=== PATIENT | female | born 1950 | race Caucasian/White ===

== ENCOUNTER 2023-08-24 12:35 | Emergency (ER) | payer MEDICARE, MEDICAID, SELFPAY ==
[2023-08-24] VITALS (11 sets, daily range): BP systolic 95–123; BP diastolic 58–66; PULSE 73–90; RESP 14–28; TEMP 36.1–36.6; O2SAT 95–97
--- NOTE | 2023-08-24 13:15 | RT.EKG_ITS ---
APPROVED REPORT Exam: Resting ECG Reason for Exam: weakness Patient Location: E HR:79 bpm ECG Measurements Heart Rate 79 AXIS NV 57 P 0 QRSd 153 QRS -68 QT 446 T 98 QTc 513 Conclusion Ventricular-paced complexes...other complexes also detected RBBB and LAFB...QRSd >120mS, axis(-40,240)
[2023-08-24] MEDS: LORazepam 2 MG/ML VIAL 0.5 MG IVP (13:25)
[2023-08-24 13:37] LABS: Lactate 1.6 mmol/L (0.6-1.4)
[2023-08-24 13:38] LABS: Abs Immature Grans 0.04 10^3/uL (0.0-0.06); Absolute Basophil Count 0.11 10^3/uL (0.0-0.2); Absolute Eosinophil Count 0.31 10^3/uL (0.0-0.7); Absolute Lymphocyte Count 1.24 10^3/uL (1.2-3.4); Absolute Monocyte Count 0.73 10^3/uL (0.1-0.8); Absolute Neutrophil Count 7.43 10^3/uL (1.2-6.7); Basophils % 1.1; Eosinophils % 3.1; HCT 43.6 % (36.0-46.0); HGB 13.7 g/dL (11.2-15.7); Immature Grans % 0.4; Lymphocytes % 12.6; MCH 28.7 pg (27.0-33.0); MCHC 31.4 % (32.0-36.0); MCV 91 fL (80-95); Monocytes % 7.4; Neutrophils % 75.4; Platelet Count 266 10^3/uL (130-400); RBC 4.77 10^6/uL (3.93-5.22); RDW 13.2 % (11.7-14.6); RDW-SD 44.7 fL; WBC 9.86 10^3/uL (4.4-10.8)
[2023-08-24 13:56] LABS: ALT 7 U/L (14-59); AST 15 U/L (15-37); Albumin 3.8 g/dL (3.4-5.0); Alkaline Phosphatase 67 U/L (46-116); Anion Gap 6.9 mmol/L (3-11); BUN 24 mg/dL (7-18); Bilirubin, Total 0.8 mg/dL (0.2-1.0); CO2 27.1 mmol/L (21.0-32.0); CREATININE 0.7 mg/dL (0.55-1.02); Calcium 9.5 mg/dL (8.5-10.1); Chloride 104 mmol/L (98-107); Creatine Kinase 53 U/L (26-192); Estimated GFR 90.14 (mL/min/1.73m2); Glucose 123 mg/dL (74-106); Potassium 4.3 mmol/L (3.5-5.1); Sodium 138 mmol/L (136-145); Total Protein 7.3 g/dL (6.4-8.2)
[2023-08-24 14:18] LABS: Procalcitonin < 0.1 ng/mL
[2023-08-24 14:30] LABS: COVID-19 PCR Negative (Negative); Influenza A PCR Negative (Negative); Influenza B PCR Negative (Negative); RSV PCR Negative (Negative)
[2023-08-24 14:31] LABS: Source Nasopharynx
[2023-08-24 14:36] LABS: Bilirubin Negative (Negative); Blood Negative (Negative); Clarity Clear (Clear); Glucose Negative (Negative); Ketones Trace mg/dL (Negative); Leukocyte Esterase Trace (Negative); Nitrite Negative (Negative); Urobilinogen 0.2 mg/dL (Up to 0.2); pH 5.5 (5-8)
[2023-08-24 14:46] LABS: Bacteria Rare HPF (Negative); C & S Indicated? Yes; Casts Negative LPF (Negative); Crystals Negative HPF (Negative); Epithelial Cells Few HPF (Negative); Mucus Negative (Negative); Other Cells Rare Renal (Negative); RBC Negative HPF (0-2); WBC 0-2 HPF (0-5)
--- NOTE | 2023-08-24 14:58 | ED.GENADUL_ITS ---
Discharge Plan Disposition Patient Disposition: Home Condition: Stable Discharge Details Clinical Impression: Muscle cramp, Weakness, Parkinson's disease Primary Care Provider: Medina Sommer ED Provider: Germán Schaeffer Home Meds and New Rx's Prescriptions: Continued apixaban 5 mg tablet 5 mg PO BID carbidopa-levodopa [Sinemet] 25-100 mg tablet 2 tab PO QID Patient Comments: May take extra tab overnight, if needed diclofenac sodium 1 % gel 2 g topical TID Rx Instructions: apply to single elbow, wrist or hand; for hand includes palm/fingers/back of hand glipizide 5 mg tablet 5 mg PO DAILY levothyroxine 112 mcg capsule 112 mcg PO DAILY losartan 50 mg tablet 50 mg PO DAILY metformin 500 mg tablet 500 mg PO BID metoprolol succinate 100 mg tablet extended release 24 hr 100 mg PO DAILY Discharge Instructions Instructions: Weakness (ED) Additional Instructions: Recommendation for use of walker with ambulation Follow-up with your neurologist tomorrow Continue on your prescribed medications Recommend some tonic water daily Return earlier should you develop new or worsening complaints Talk with Neurology about dyskinesia meds, Home Health evaluations have been sent for increase in services Referrals: Medina Sommer [Primary Care Provider] - Discharge Data Discharge Date/Time-TO BE ENTERED AT DEPARTURE: 08/24/23 17:31 Medical Decision Making Chronically ill 73-year-old female presenting with weakness and increased tremors, history of Parkinson's feels as though she is having an exacerbation al though she does not endorse prior history of this Procalcitonin and labs did not display significant acute abnormality Urinalysis is clear without evidence of obvious infection Will order CT head and chest x-ray for further evaluation pt is alert and oriented x3, tremulous, in NAD, lungs cta, cardiac rrr Case discussed with Dr. Chavira, neurologist at [facility], the case was reportedly reviewed with Dr. Quiñonez, patient's neurologist and he does not have any additional recommendations for this patient at this time, apparently she was having some increased psychosis with increased dose of carbidopa levodopa and would hold on adjustment of meds Is recommending outpatient reassessment, will perform PT assessment, if patient is able to ambulate will likely discharge home with outpatient neurology follow- up Will sign out to JONAS Sims pending pt assessment and disposition HPI General Date/Time Provider Initiated Documentation: 08/24/23 12:40 . HPI Narrative: This 73-year-old female presents with report of weakness and increased tremulousness and weakness all 4 extremities. She states that typically she ambulates well even with her Parkinson's and that she is not having difficulty with ambulation which has been progressive over the past 48 to 72 hours. She states she is never had symptoms such as this in the past. Patient denies any infectious signs or symptoms denies any chest pain or shortness of breath. Denies any urinary complaints. Denies any falls or injuries. Denies any speech change. Related Data Home Medications Medication Instructions Recorded Confirmed apixaban 5 mg tablet 5 mg PO BID 01/25/23 08/24/23 carbidopa 25 mg-levodopa 100 mg 2 tab PO QID 01/25/23 08/24/23 tablet (Sinemet) diclofenac sodium 1 % topical gel 2 g topical TID 01/25/23 08/24/23 glipizide 5 mg tablet 5 mg PO DAILY 01/25/23 08/24/23 levothyroxine 112 mcg capsule 112 mcg PO DAILY 01/25/23 08/24/23 losartan 50 mg tablet 50 mg PO DAILY 01/25/23 08/24/23 metformin 500 mg tablet 500 mg PO BID 01/25/23 08/24/23 metoprolol succinate 100 mg 100 mg PO DAILY 01/25/23 08/24/23 tablet,extended release 24 hr Allergies Allergy/AdvReac Type Severity Reaction Status Date / Time clindamycin Allergy Unknown Skin Rash Verified 08/24/23 13:00 empagliflozin Allergy Unknown Verified 08/24/23 13:00 latex Allergy Unknown Verified 08/24/23 13:00 oxycodone Allergy Unknown Verified 08/24/23 13:00 Penicillins Allergy Unknown Verified 08/24/23 13:00 ramipril Allergy Unknown Verified 08/24/23 13:00 rosuvastatin Allergy Unknown muscle pain Verified 08/24/23 13:00 shellfish derived Allergy Unknown Verified 08/24/23 13:00 Sulfa (Sulfonamide Allergy Unknown Verified 08/24/23 13:00 Antibiotics) iodine topical Allergy Unknown Uncoded 08/24/23 13:00 General Stated Complaint: [facility] SILVIANO: 3 PFSH All Active Problems (Updated 08/24/23 @ 16:03 by JONAS Del Valle) Parkinson's disease (Chronic) Weakness (Acute) Muscle cramp (Acute) Foot pain (Acute) Plantar fasciitis (Acute) Chronic a-fib (Acute) Parkinsons disease (Chronic) Hypothyroidism (Chronic) Pacemaker (Acute) Type 2 diabetes mellitus (Acute) Hypertension (Chronic) PETRA (generalized anxiety disorder) (Acute) Surgical History (Updated 01/26/23 @ 10:59 by Emily Robert RN) History of heart artery stent x 2 History of bilateral hip replacements R 2016, 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 Social History Smoking/Tobacco Use Status: Never Smoking risk assessment performed?: Yes Alcohol Intake: never Drug use: Never Substance use type: does not use Housing: house Do you feel safe at home: Yes Do you feel safe in your relationship?: Yes Additional Social history: UNABLE TO ASSESS PRIVATELY Course Vital Signs Vital signs: Vital Signs Temperature 36.6 C 08/24/23 12:39 Pulse 82 08/24/23 12:39 Respiratory Rate 20 08/24/23 12:39 Blood Pressure 95/66 L 08/24/23 12:39 Pulse Oximetry 95 08/24/23 12:39 Temperature 36.6 C 08/24/23 12:39 Temperature Source Skin 08/24/23 12:39 Pulse 81 08/24/23 13:46 Pulse 73 08/24/23 14:41 Respiratory Rate 28 H 08/24/23 14:41 Respiratory Effort Normal, Non-Labored 08/24/23 13:03 Blood Pressure 106/58 L 08/24/23 13:46 Blood Pressure Mean 74 08/24/23 13:46 Blood Pressure Position Sitting 08/24/23 12:39 Pulse Oximetry 95 08/24/23 14:41 Oxygen Delivery Method Room Air 08/24/23 12:39 Oxygen Flow Rate 0 08/24/23 12:39 Pain Level 8 08/24/23 12:39 Lab/Test Results Lab/Test Results: 08/24/23 14:32 Urine - Reflex from Ua Urine Culture - Pending 08/24/23 13:55 Blood Blood Culture - Pending 08/24/23 13:25 Blood Blood Culture - Pending Laboratory Tests Range/Units 08/24/23 08/24/23 08/24/23 13:25 13:25 13:50 WBC (4.4-10.8) 10^3/uL 9.86 RBC (3.93-5.22) 10^6/uL 4.77 Hgb (11.2-15.7) g/dL 13.7 Hct (36.0-46.0) % 43.6 MCV (80-95) fL 91 MCH (27.0-33.0) pg 28.7 MCHC (32.0-36.0) % 31.4 L RDW (11.7-14.6) % 13.2 Plt Count (130-400) 10^3/uL 266 MPV (8.0-11.0) fL 9.0 Immature Gran % 0.4 Neutrophils % 75.4 Lymphocytes % 12.6 Monocytes % 7.4 Eosinophils % 3.1 Basophils % 1.1 Nucleated RBC % (0.0-0.3) % 0.0 Absolute Neutrophils (1.2-6.7) 10^3/uL 7.43 H Absolute Lymphocytes (1.2-3.4) 10^3/uL 1.24 Absolute Monocytes (0.1-0.8) 10^3/uL 0.73 Absolute Eosinophils (0.0-0.7) 10^3/uL 0.31 Absolute Basophils (0.0-0.2) 10^3/uL 0.11 VBG Lactate (0.6-1.4) mmol/L 1.6 H Sodium (136-145) mmol/L 138 Potassium (3.5-5.1) mmol/L 4.3 Chloride (98-107) mmol/L 104 Carbon Dioxide (21.0-32.0) mmol/L 27.1 Anion Gap (3-11) mmol/L 6.9 BUN (7-18) mg/dL 24 H Creatinine (0.55-1.02) mg/dL 0.7 Est GFR (CKD-EPI 2020) (mL/min/1.73m2) 90.14 Glucose (74-106) mg/dL 123 H Calcium (8.5-10.1) mg/dL 9.5 Total Bilirubin (0.2-1.0) mg/dL 0.8 AST (15-37) U/L 15 ALT (14-59) U/L 7 L Alkaline Phosphatase (46-116) U/L 67 Creatine Kinase (26-192) U/L 53 Cancelled Total Protein (6.4-8.2) g/dL 7.3 Albumin (3.4-5.0) g/dL 3.8 Procalcitonin ng/mL < 0.1 Urine Color (Yellow) Urine Clarity (Clear) Urine pH (5-8) Ur Specific Show Low (1.005-1.025) Urine Protein (Negative) mg/dL Urine Ketones (Negative) mg/dL Urine Blood (Negative) Urine Nitrite (Negative) Urine Bilirubin (Negative) Urine Urobilinogen (Up to 0.2) mg/dL Ur Leukocyte Esterase (Negative) Urine RBC (0-2) HPF Urine WBC (0-5) HPF Ur Epithelial Cells (Negative) HPF Urine Crystals (Negative) HPF Urine Bacteria (Negative) HPF Urine Casts (Negative) LPF Urine Mucus (Negative) Urine Other (Negative) Ur Culture Indicated? Urine Glucose (Negative) mg/dL COVID-19 Source Nasopharynx SARS-CoV-2 (PCR) (Negative) Negative Influenza Type A (PCR) (Negative) Negative Influenza Type B (PCR) (Negative) Negative RSV (PCR) (Negative) Negative Range/Units 08/24/23 14:32 WBC (4.4-10.8) 10^3/uL RBC (3.93-5.22) 10^6/uL Hgb (11.2-15.7) g/dL Hct (36.0-46.0) % MCV (80-95) fL MCH (27.0-33.0) pg MCHC (32.0-36.0) % RDW (11.7-14.6) % Plt Count (130-400) 10^3/uL MPV (8.0-11.0) fL Immature Gran % Neutrophils % Lymphocytes % Monocytes % Eosinophils % Basophils % Nucleated RBC % (0.0-0.3) % Absolute Neutrophils (1.2-6.7) 10^3/uL Absolute Lymphocytes (1.2-3.4) 10^3/uL Absolute Monocytes (0.1-0.8) 10^3/uL Absolute Eosinophils (0.0-0.7) 10^3/uL Absolute Basophils (0.0-0.2) 10^3/uL VBG Lactate (0.6-1.4) mmol/L Sodium (136-145) mmol/L Potassium (3.5-5.1) mmol/L Chloride (98-107) mmol/L Carbon Dioxide (21.0-32.0) mmol/L Anion Gap (3-11) mmol/L BUN (7-18) mg/dL Creatinine (0.55-1.02) mg/dL Est GFR (CKD-EPI 2020) (mL/min/1.73m2) Glucose (74-106) mg/dL Calcium (8.5-10.1) mg/dL Total Bilirubin (0.2-1.0) mg/dL AST (15-37) U/L ALT (14-59) U/L Alkaline Phosphatase (46-116) U/L Creatine Kinase (26-192) U/L Total Protein (6.4-8.2) g/dL Albumin (3.4-5.0) g/dL Procalcitonin ng/mL Urine Color (Yellow) Yellow Urine Clarity (Clear) Clear Urine pH (5-8) 5.5 Ur Specific Show Low (1.005-1.025) 1.020 Urine Protein (Negative) mg/dL Negative Urine Ketones (Negative) mg/dL Trace H Urine Blood (Negative) Negative Urine Nitrite (Negative) Negative Urine Bilirubin (Negative) Negative Urine Urobilinogen (Up to 0.2) mg/dL 0.2 Ur Leukocyte Esterase (Negative) Trace H Urine RBC (0-2) HPF Negative Urine WBC (0-5) HPF 0-2 Ur Epithelial Cells (Negative) HPF Few Urine Crystals (Negative) HPF Negative Urine Bacteria (Negative) HPF Rare Urine Casts (Negative) LPF Negative Urine Mucus (Negative) Negative Urine Other (Negative) Rare Renal Ur Culture Indicated? Yes Urine Glucose (Negative) mg/dL Negative COVID-19 Source SARS-CoV-2 (PCR) (Negative) Influenza Type A (PCR) (Negative) Influenza Type B (PCR) (Negative) RSV (PCR) (Negative) Sign Out Sign Out Data: Sign Out Comment: pending pt assessment and disposition wtg Last updated by Terri Salinas PA at 08/24/23 15:57
--- NOTE | 2023-08-24 15:05 | DI.CT_ITS ---
Exam(s) CT HEAD WO EXAM: CT HEAD WO CLINICAL HISTORY: weakness. TECHNIQUE: Imaging Protocol: Axial computed tomography images with coronal and sagittal reformatted images were created and reviewed COMPARISON: No exams were available for comparison FINDINGS: Ventricles and Extra axial spaces: Normal in size and morphology for the patient's age. Hemorrhage: None. Cerebral parenchyma: There are areas of decreased attenuation in the white matter most consistent wit h small vessel ischemic disease. Midline shift: None. Brainstem/Cerebellum: Normal. Calvarium: Normal. Visualized Paranasal sinuses/Mastoids: There is a mucous retention cyst in the left maxillary sinus. Soft Tissues: Unremarkable. IMPRESSION: 1. No acute intracranial process. 2. Findings were discussed with the emergency department at 3:13 p.m. on 08/24/2023. RADIATION DOSE DELIVERED: Total DLP DATA REPOSITORY: All CT scans at this facility are submitted to the National Radiology Data Registry (NRDR) Dose Index Registry (DIR) with the [employer] (ACR). RADIATION OPTIMIZATION: All CT scans at this facility use at least one of these dose optimization te chniques: automated exposure control; mA and/or kV adjustment per patient size (includes targeted exa ms where dose is matched to clinical indication); or iterative reconstruction.
--- NOTE | 2023-08-24 15:15 | DI.RAD_ITS ---
Exam(s) XR CHEST 1V IN DI DEPT EXAM: XR CHEST 1V IN DI DEPT CLINICAL HISTORY: weakness TECHNIQUE: 2D digital imaging was performed of the chest. One image was obtained. An AP view was ob tained. COMPARISON: No exams were available for comparison FINDINGS: MEDIASTINUM: Normal. HEART: Normal. Cardiac pacing device is in good position. PULMONARY VASCULATURE: Normal. LUNGS: Clear. PLEURAL SPACE: No pleural effusion or pneumothorax. BONE:Within normal limits for the patient's age. OTHER FINDINGS:Normal. IMPRESSION: No acute pulmonary findings. DATA REPOSITORY: RADIATION DOSE DELIVERED:
[2023-08-24] MEDS: Normal Saline 500 ML IV (15:26)
--- NOTE | 2023-08-24 16:20 | IN_ITS ---
PT Notes Physical Therapy Emergency Department Initial Evaluation Date: 08/24/2023 Referring Doctor: JONAS Del Valle PT Orders: PT CONSULT: Safety Consult for D/C Precautions: Activity as tolerated. Patient Profile/Admitting Diagnosis: Marni is a 73-year-old female who presented to the ED due to generalized weakness, increased tremoulousness, and suspected exacerbation of her PD. PMHX: All Active Problems (Updated 01/26/23 @ 11:18 by Kelsey Schofield DPM) Foot pain (Acute) Plantar fasciitis (Acute) Chronic a-fib (Acute) Parkinsons disease (Chronic) Hypothyroidism (Chronic) Pacemaker (Acute) Type 2 diabetes mellitus (Acute) Hypertension (Chronic) PETRA (generalized anxiety disorder) (Acute) Surgical History (Updated 01/26/23 @ 10:59 by Emily Robert RN) History of heart artery stent x 2 History of bilateral hip replacements R 2016, L 03/2022. Social History/Home Situation: Lives with who sleeps in a different room in the house. Daughter lives close by but unsure of how much she can do to help out at this time. Equipment Owned/DME: [facility] Subjective: Patient feels that the Lorazepam she took earlier may have caused her lightheadedness and headache. She states she has not taken it in the past. She does not feel safe going home as her sleeps in a different room and cannot help her get out of bed to use the bathroom at night. She adds that she has not felt weak like this before. She has been taking her anti PD meds since her diagnosis 20 years ago. She has had no falls in the past year. Objective: General Observation: Resting in bed. Resting tremors more pronounced in B UE than B LE. IV through R UE capped by Nurse Welch prior to the walk. Mental Status: Alert and oriented x 4 Pain: Reports moderate frontal headache ROM: Right Upper Extremity: Shoulder Flexion less than 25% AROM due to previous shoulder injury. Shoulder abduction ess than 25% AROM due to previous shoulder injury. Elbow flexion WFL. Wrist flexion WFL. Functional opening and closing of hand WFL. Left Upper Extremity: Shoulder Flexion WFL. Shoulder abduction WFL. Elbow flexion WFL. Wrist flexion WFL. Functional opening and closing of hand WFL. Right Lower Extremity: Hip flexion WFL. Hip abduction WFL. Knee flexion WFL. Ankle dorsiflexion WFL. Ankle plantarflexion WFL. Left Lower Extremity: Hip flexion WFL. Hip abduction WFL. Knee flexion WFL. Ankle dorsiflexion WFL. Ankle plantarflexion WFL. Strength: Right Upper Extremity: Shoulder flexors 2-/5. Shoulder abductors 2-/5. Elbow flexors 3/5. Elbow extensors 3/5. [employer] strong. Left Upper Extremity: Shoulder flexors 4/5. Shoulder abductors 4/5. Elbow flexors 4/5. Elbow extensors 4/5. Se[employer] Manager strong. Right Lower Extremity: Hip flexors 4-/5. Hip abductors 4-/5. Knee flexors 4-/5. Knee extensors 4-/5. Ankle dorsiflexors 4-/5. Ankle plantarflexors 4-/5. Left Lower Extremity: Hip flexors 4-/5. Hip abductors 4-/5. Knee flexors 4-/5. Knee extensors 4-/5. Ankle dorsiflexors 4-/5. Ankle plantarflexors 4-/5. Sensation: Intact as to pain and light pressure in B UE/LE Bed Mobility/Transfers: Minimal verbal cues needed for hand palcement, movement sequence, and overall safety Supine to sit minimal assist Sit to stand minimal assist Stand to sit minimla assist Bed to chair minimal assist Gait: Facilitated safe and correct performance of short distance level surface ambulation using front-wheeled walker with minimal assist. 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 Deferred further walking. Nurse Welch and JONAS Sims updated of patient's symptoms. Balance: Static Sitting: Normal Dynamic Sitting: Normal Static Standing: Fair Dynamic Standing: Fair Special Tests: Mobility Limitations Standardized Measure [facility] AM-PAC 6 clicks Basic Mobility Inpatient Short Form: Raw Score: 18 CMS Score: 47% deficit Informed Consent/Education: Patient instructed in purpose of PT consult. ASSESSMENT: Patient demonstrates functional mobility decline with new onset ligtheadedness and frontal headache requiring the assitance of one caregiver to stay safe during mobility ADL performance. Pre-existing Parkinson's disease along with new symptoms increase risk for falls and re-hospitalization rate at this time. Attending provider was informed about patient's mobility status and safety level at the end of session. Patient presents with clinical signs and symptoms consistent with current/admitting diagnoses that have resulted to mobility limitations, gait instability, generalized weakness, and impairment of motor control as demonstrated by the following impairment level findings: 1. Decreased strength to B LE major muscle groups 2. Impaired standing balance 3. Limitation of joint range of motion in R shoulder (chronic) 4. Lightheadedness 5. Frontal headache Impairments are contributing to the following functional limitations: 1. Inability to safely ambulate without assistive device and physical assistance 2. Increased completion time for mobility ADL performance 3. Increased fall risk Patient is assessed as a [id number] moderate complexity based on the following: History: 73-year-old female with impairment level findings, functional limitations, and past medical history as indicated above Examination: Demonstrable impairment in strength, balance, and mobility level with underlying impairments and functional limitations as documented above Presentation: Evolving Decision Makin moderate complexity Goals: N/A. PT evaluation only. Plan of Care/Treatment Plan: N/A. PT evaluation only. DISCHARGE RECOMMENDATIONS: SNF vs PT based on availability of caregivers at home. TREATMENT CODE/TIME: 39187 x 20 minutes for 1 unit, 00021 x 10 minutes for 1 unit beginning at 16:20 PM. Thank you for the opportunity to participate in the care of this patient. Kath Samson PT, DPT, CLT [facility] [place], [place]
--- NOTE | 2023-08-24 17:10 | ED.PROG_ITS ---
Date of service: 08/24/23 Time of Service: 16:00 Medical Decision Making 73-year-old female signed out to me by outgoing provider JONAS Del Valle. Patient has had chronic Parkinson's for many years since at least 2002, is on carbidopa levodopa with inability to increase dose due to psychosis side effects., Not on any dyskinesia medicines. Managed by [facility] neurology. Patient states that she has been having tremulous leg movements and difficulty ambulating with her walker. She underwent a thorough work-up shows normal CK, unlikely rhabdomyolysis, CT of the head was negative, had mild increase in lactate well below concern for sepsis likely due to dehydration. Previous provider had consulted with [facility] to possibly admit her if she was unable to ambulate and get around the home safely but they have no capacity for at least 48 hours. She was seen by our physical therapy department who deemed it appropriate if she could be assisted with her walker to remain in the home. She does have home health services 4-5 times per week. I discussed this with her family, her daughter is able to stay with them leonor, her is in the home as well, I did discuss placing a commode very close to her bed to prevent fall risks. I did discuss that we had no admittable diagnosis and no capacity for inpatient beds at this time and that this would likely be an ED hold if they felt unsafe in the home, we did engaged in shared decision-making and I did refer them to home health for possible increase in services due to chronic progressing Parkinson's disease. Recommend they follow-up with their primary care provider for possible placement discussions in the future. Discussed goals of care of remaining in the home, may need occupational therapy consult in the home as well as physical therapy at home visits, they will follow-up with their neurologist for possible trial of dyskinesia medications to manage side effects and Parkinson's treatment. Referred for OT/PT via Home Health. Daughter staying with them leonor. Reasonable for discharge. Medical Records Medical records reviewed: Yes I reviewed the patient's medical records. Imaging Data Radiologic Study: Imaging: CT Scan Radiologist's impression: Exam(s) CT HEAD WO EXAM: CT HEAD WO CLINICAL HISTORY: weakness. TECHNIQUE: Imaging Protocol: Axial computed tomography images with coronal and sagittal reformatted images were created and reviewed COMPARISON: No exams were available for comparison FINDINGS: Ventricles and Extra axial spaces: Normal in size and morphology for the patient's age. Hemorrhage: None. Cerebral parenchyma: There are areas of decreased attenuation in the white matter most consistent with small vessel ischemic disease. Midline shift: None. Brainstem/Cerebellum: Normal. Calvarium: Normal. Visualized Paranasal sinuses/Mastoids: There is a mucous retention cyst in the left maxillary sinus. Soft Tissues: Unremarkable. IMPRESSION: 1. No acute intracranial process. 2. Findings were discussed with the emergency department at 3:13 p.m. on 08/24/2023. Radiologic Study #2: Imaging: X-Ray Radiologist's impression: EXAM: XR CHEST 1V IN DI DEPT CLINICAL HISTORY: weakness TECHNIQUE: 2D digital imaging was performed of the chest. One image was obtained. An AP view was obtained. COMPARISON: No exams were available for comparison FINDINGS: MEDIASTINUM: Normal. HEART: Normal. Cardiac pacing device is in good position. PULMONARY VASCULATURE: Normal. LUNGS: Clear. PLEURAL SPACE: No pleural effusion or pneumothorax. BONE:Within normal limits for the patient's age. OTHER FINDINGS:Normal. IMPRESSION: No acute pulmonary findings. Lab Data Lab results reviewed: Yes I reviewed the patient's lab results. Labs: 08/24/23 14:32 Urine - Reflex from Ua Urine Culture - Pending 08/24/23 13:55 Blood Blood Culture - Pending 08/24/23 13:25 Blood Blood Culture - Pending Laboratory Tests Range/Units 08/24/23 08/24/23 08/24/23 13:25 13:25 13:50 WBC (4.4-10.8) 10^3/uL 9.86 RBC (3.93-5.22) 10^6/uL 4.77 Hgb (11.2-15.7) g/dL 13.7 Hct (36.0-46.0) % 43.6 MCV (80-95) fL 91 MCH (27.0-33.0) pg 28.7 MCHC (32.0-36.0) % 31.4 L RDW (11.7-14.6) % 13.2 Plt Count (130-400) 10^3/uL 266 MPV (8.0-11.0) fL 9.0 Immature Gran % 0.4 Neutrophils % 75.4 Lymphocytes % 12.6 Monocytes % 7.4 Eosinophils % 3.1 Basophils % 1.1 Nucleated RBC % (0.0-0.3) % 0.0 Absolute Neutrophils (1.2-6.7) 10^3/uL 7.43 H Absolute Lymphocytes (1.2-3.4) 10^3/uL 1.24 Absolute Monocytes (0.1-0.8) 10^3/uL 0.73 Absolute Eosinophils (0.0-0.7) 10^3/uL 0.31 Absolute Basophils (0.0-0.2) 10^3/uL 0.11 VBG Lactate (0.6-1.4) mmol/L 1.6 H Sodium (136-145) mmol/L 138 Potassium (3.5-5.1) mmol/L 4.3 Chloride (98-107) mmol/L 104 Carbon Dioxide (21.0-32.0) mmol/L 27.1 Anion Gap (3-11) mmol/L 6.9 BUN (7-18) mg/dL 24 H Creatinine (0.55-1.02) mg/dL 0.7 Est GFR (CKD-EPI 2020) (mL/min/1.73m2) 90.14 Glucose (74-106) mg/dL 123 H Calcium (8.5-10.1) mg/dL 9.5 Total Bilirubin (0.2-1.0) mg/dL 0.8 AST (15-37) U/L 15 ALT (14-59) U/L 7 L Alkaline Phosphatase (46-116) U/L 67 Creatine Kinase (26-192) U/L 53 Cancelled Total Protein (6.4-8.2) g/dL 7.3 Albumin (3.4-5.0) g/dL 3.8 Procalcitonin ng/mL < 0.1 Urine Color (Yellow) Urine Clarity (Clear) Urine pH (5-8) Ur Specific [place] (1.005-1.025) Urine Protein (Negative) mg/dL Urine Ketones (Negative) mg/dL Urine Blood (Negative) Urine Nitrite (Negative) Urine Bilirubin (Negative) Urine Urobilinogen (Up to 0.2) mg/dL Ur Leukocyte Esterase (Negative) Urine RBC (0-2) HPF Urine WBC (0-5) HPF Ur Epithelial Cells (Negative) HPF Urine Crystals (Negative) HPF Urine Bacteria (Negative) HPF Urine Casts (Negative) LPF Urine Mucus (Negative) Urine Other (Negative) Ur Culture Indicated? Urine Glucose (Negative) mg/dL COVID-19 Source Nasopharynx SARS-CoV-2 (PCR) (Negative) Negative Influenza Type A (PCR) (Negative) Negative Influenza Type B (PCR) (Negative) Negative RSV (PCR) (Negative) Negative Range/Units 08/24/23 14:32 WBC (4.4-10.8) 10^3/uL RBC (3.93-5.22) 10^6/uL Hgb (11.2-15.7) g/dL Hct (36.0-46.0) % MCV (80-95) fL MCH (27.0-33.0) pg MCHC (32.0-36.0) % RDW (11.7-14.6) % Plt Count (130-400) 10^3/uL MPV (8.0-11.0) fL Immature Gran % Neutrophils % Lymphocytes % Monocytes % Eosinophils % Basophils % Nucleated RBC % (0.0-0.3) % Absolute Neutrophils (1.2-6.7) 10^3/uL Absolute Lymphocytes (1.2-3.4) 10^3/uL Absolute Monocytes (0.1-0.8) 10^3/uL Absolute Eosinophils (0.0-0.7) 10^3/uL Absolute Basophils (0.0-0.2) 10^3/uL VBG Lactate (0.6-1.4) mmol/L Sodium (136-145) mmol/L Potassium (3.5-5.1) mmol/L Chloride (98-107) mmol/L Carbon Dioxide (21.0-32.0) mmol/L Anion Gap (3-11) mmol/L BUN (7-18) mg/dL Creatinine (0.55-1.02) mg/dL Est GFR (CKD-EPI 2020) (mL/min/1.73m2) Glucose (74-106) mg/dL Calcium (8.5-10.1) mg/dL Total Bilirubin (0.2-1.0) mg/dL AST (15-37) U/L ALT (14-59) U/L Alkaline Phosphatase (46-116) U/L Creatine Kinase (26-192) U/L Total Protein (6.4-8.2) g/dL Albumin (3.4-5.0) g/dL Procalcitonin ng/mL Urine Color (Yellow) Yellow Urine Clarity (Clear) Clear Urine pH (5-8) 5.5 Ur Specific [place] (1.005-1.025) 1.020 Urine Protein (Negative) mg/dL Negative Urine Ketones (Negative) mg/dL Trace H Urine Blood (Negative) Negative Urine Nitrite (Negative) Negative Urine Bilirubin (Negative) Negative Urine Urobilinogen (Up to 0.2) mg/dL 0.2 Ur Leukocyte Esterase (Negative) Trace H Urine RBC (0-2) HPF Negative Urine WBC (0-5) HPF 0-2 Ur Epithelial Cells (Negative) HPF Few Urine Crystals (Negative) HPF Negative Urine Bacteria (Negative) HPF Rare Urine Casts (Negative) LPF Negative Urine Mucus (Negative) Negative Urine Other (Negative) Rare Renal Ur Culture Indicated? Yes Urine Glucose (Negative) mg/dL Negative COVID-19 Source SARS-CoV-2 (PCR) (Negative) Influenza Type A (PCR) (Negative) Influenza Type B (PCR) (Negative) RSV (PCR) (Negative) Sign Out Sign Out Data: Sign Out Comment: pending pt assessment and disposition wtg Last updated by Terri Salinas PA at 08/24/23 15:57 Discharge Plan Disposition Patient Disposition: Home Condition: Stable Discharge Details Clinical Impression: Muscle cramp, Weakness, Parkinson's disease Primary Care Provider: Medina Sommer ED Provider: Germán Schaeffer Home Meds and New Rx's Prescriptions: Continued apixaban 5 mg tablet 5 mg PO BID carbidopa-levodopa [Sinemet] 25-100 mg tablet 2 tab PO QID Patient Comments: May take extra tab overnight, if needed diclofenac sodium 1 % gel 2 g topical TID Rx Instructions: apply to single elbow, wrist or hand; for hand includes palm/fingers/back of hand glipizide 5 mg tablet 5 mg PO DAILY levothyroxine 112 mcg capsule 112 mcg PO DAILY losartan 50 mg tablet 50 mg PO DAILY metformin 500 mg tablet 500 mg PO BID metoprolol succinate 100 mg tablet extended release 24 hr 100 mg PO DAILY Discharge Instructions Instructions: Weakness (ED) Additional Instructions: Recommendation for use of walker with ambulation Follow-up with your neurologist tomorrow Continue on your prescribed medications Recommend some tonic water daily Return earlier should you develop new or worsening complaints Talk with Neurology about dyskinesia meds, Home Health evaluations have been sent for increase in services Referrals: Medina Sommer [Primary Care Provider] - Discharge Data Discharge Date/Time-TO BE ENTERED AT DEPARTURE: 08/24/23 17:31
--- NOTE | 2023-08-24 17:27 | NUR.NOTE ---
Home Health face to face filled out by Kim Schaeffer for referral. This form has been given to Care Management. Nursing Note:
--- NOTE | 2023-08-25 11:02 | W.ED.FU ---
Follow Up Plan: Patient had 1 positive blood culture gram-positive cocci, the remaining 3 cultures are negative at this time I suspect this is a likely contaminant, patient is feeling symptomatically improved today, she does not have a fever and she has been ambulatory Discussion regarding return precautions and reassessment precautions had with patient
== END 2023-08-24 17:31 | disposition home or self-care (01) ==
PROVIDERS: Physician Assistant; Emergency Provider Physician Assistant; PCP Internal Medicine
DX: R53.1 Weakness (principal); M62.838 Other muscle spasm; G20.A1 Parkinson's disease without dyskinesia, without mention of fluctuations; Z79.01 Long term (current) use of anticoagulants; Z79.84 Long term (current) use of oral hypoglycemic drugs; Z79.899 Other long term (current) drug therapy
CPT/HCPCS: 00123; 36415; 80053; 82550; 82962; 84145; 87040; 87077; 87637; 93005; 96361; 96374; 97162; 97530; 99285; 70450; 71045; 81003; 81015; 83605; 85025; 87086; 87186; 93010; J2060

== ENCOUNTER 2023-08-26 15:42 | Emergency (ER) | payer MEDICARE, MEDICAID, SELFPAY ==
--- NOTE | 2023-08-26 15:45 | RT.EKG_ITS ---
APPROVED REPORT Exam: Resting ECG Reason for Exam: Chest pain Patient Location: E HR:81 bpm ECG Measurements Heart Rate 81 AXIS NV [id number] P [id number] QRSd 161 QRS -73 QT 435 T 84 QTc 505 Conclusion Afib/flut and V-paced complexes...other complexes, A-rate>240 RBBB and LAFB...QRSd >120mS, axis(-40,240)
[2023-08-26 15:47] VITALS: BP 161/107; PULSE 95; RESP 20; TEMP 36.5; O2SAT 97
--- NOTE | 2023-08-26 16:11 | W.ED.GENAD ---
Discharge Plan Disposition Patient Disposition: Home Condition: Stable Discharge Details Clinical Impression: Weakness, Chest pain, Parkinson's disease Primary Care Provider: Medina Sommer ED Provider: Gayathri Jane Home Meds and New Rx's Prescriptions: No Action apixaban 5 mg tablet 5 mg PO BID carbidopa-levodopa [Sinemet] 25-100 mg tablet 2 tab PO QID Patient Comments: pt states taking q 3 hours diclofenac sodium 1 % gel 2 g topical TID Rx Instructions: apply to single elbow, wrist or hand; for hand includes palm/fingers/back of hand glipizide 5 mg tablet 5 mg PO DAILY levothyroxine 112 mcg capsule 112 mcg PO DAILY losartan 50 mg tablet 50 mg PO DAILY metformin 500 mg tablet 500 mg PO BID metoprolol succinate 100 mg tablet extended release 24 hr 100 mg PO DAILY OptiMag 125 125 mg magnesium capsule 125 mg PO DAILY multivitamin [Daily Multi-Vitamin] Tablet 1 tab PO DAILY Discharge Instructions Instructions: Chest Pain (ED), Heart Palpitations (ED), Weakness (ED) Additional Instructions: Follow up with primary care provider in 3-5 days. Return to ED sooner if any worsening or concerns. Increase oral fluids. At this time no evidence of heart attack or infection COVID is negative. Referrals: [facility] [Outside] - 1 day Medina Sommer [Primary Care Provider] - 3 days Discharge Data Discharge Date/Time-TO BE ENTERED AT DEPARTURE: 08/26/23 18:14 Medical Decision Making 73 year old female presents to the ER with chief complaint of chest pain, palpitations which began today. patient reports she did not sleep well last night due to hallucinations. She has recently increased 1 dose of her carbidopa-levodopa before bed. She was seen here 2 days ago for fever and chills. She did have 1 positive blood culture which previous provider thought it may have been a contaminant. She denies any fever. She does have a history of Parkinson's, she does have an indwelling pacemaker her daughter does have COVID, she had a history of a cardiac stent placed, atrial fibrillation, type 2 diabetes, hypertension and bilateral hip replacements. She does take Eliquis. EKG was reviewed by Dr. Cardoza ER attending, old EKG available for review. Pacemaker noted no significant change. Please see official report. Workup ordered including troponin, CBC CMP. Negative for Covid, Flu, Troponin WNL. CXR shows no acute findings. 1740: Informed by staff air defense officer that patient is requesting to be discharged and does not want to wait for the second troponin. Had long discussion with patient and . Patient reports that she does not want to go home and listen to the voices which has been ongoing for quite a while. I did offer anxiolytic which patient declined at this time. Patient is requesting that I call her neurologist and asked if she has called her neurologist. Discussed lab results with patient and XR results. Patient requesting to be discharged home. Patient discharged in hemodynamically stable condition. This text was generated using [employer] system, please disregard any oddities of phrase or misspellings. Imaging Data Radiologic Study: Imaging: X-Ray Radiologist's impression: TECHNIQUE: Imaging protocol: Radiologic exam of the chest. Views: 1 view. COMPARISON: CR XR CHEST 1V IN DI DEPT 08/24/2023 3:10 PM FINDINGS: Tubes, catheters and devices: Pacemaker. Lungs: Unremarkable. No consolidation. Pleural spaces: Unremarkable. No pleural effusion. No pneumothorax. Heart/Mediastinum: Cardiomegaly. Vasculature: Aortic calcifications. Bones/joints: Degenerative arthritis in the shoulders. IMPRESSION: No acute findings Lab Data Lab results reviewed: Yes I reviewed the patient's lab results. Labs: Laboratory Tests Range/Units 08/26/23 08/26/23 08/26/23 15:56 16:10 16:35 WBC (4.4-10.8) 10^3/uL 8.98 RBC (3.93-5.22) 10^6/uL 4.39 Hgb (11.2-15.7) g/dL 12.6 Hct (36.0-46.0) % 40.0 MCV (80-95) fL 91 MCH (27.0-33.0) pg 28.7 MCHC (32.0-36.0) % 31.5 L RDW (11.7-14.6) % 13.3 Plt Count (130-400) 10^3/uL 236 MPV (8.0-11.0) fL 9.1 Immature Gran % 0.2 Neutrophils % 68.7 Lymphocytes % 16.3 Monocytes % 9.1 Eosinophils % 4.7 Basophils % 1.0 Nucleated RBC % (0.0-0.3) % 0.0 Absolute Neutrophils (1.2-6.7) 10^3/uL 6.17 Absolute Lymphocytes (1.2-3.4) 10^3/uL 1.46 Absolute Monocytes (0.1-0.8) 10^3/uL 0.82 H Absolute Eosinophils (0.0-0.7) 10^3/uL 0.42 Absolute Basophils (0.0-0.2) 10^3/uL 0.09 Sodium (136-145) mmol/L 140 Potassium (3.5-5.1) mmol/L 4.3 Chloride (98-107) mmol/L 107 Carbon Dioxide (21.0-32.0) mmol/L 26.1 Anion Gap (3-11) mmol/L 6.9 BUN (7-18) mg/dL 18 Creatinine (0.55-1.02) mg/dL 0.8 Est GFR (CKD-EPI 2020) (mL/min/1.73m2) 76.79 Glucose (74-106) mg/dL 123 H Calcium (8.5-10.1) mg/dL 9.0 Magnesium (1.8-2.4) mg/dL 1.9 Total Bilirubin (0.2-1.0) mg/dL 0.6 AST (15-37) U/L 10 L ALT (14-59) U/L 7 L Alkaline Phosphatase (46-116) U/L 63 Troponin I (<or=60) ng/L < 50 Total Protein (6.4-8.2) g/dL 6.9 Albumin (3.4-5.0) g/dL 3.6 Urine Color (Yellow) Yellow Urine Clarity (Clear) Clear Urine pH (5-8) 6.0 Ur Specific [place] (1.005-1.025) 1.020 Urine Protein (Negative) mg/dL Negative Urine Ketones (Negative) mg/dL Trace H Urine Blood (Negative) Negative Urine Nitrite (Negative) Negative Urine Bilirubin (Negative) Negative Urine Urobilinogen (Up to 0.2) mg/dL 0.2 Ur Leukocyte Esterase (Negative) Negative Urine Glucose (Negative) mg/dL Negative COVID-19 Source Nasopharynx SARS-CoV-2 (PCR) (Negative) Negative Influenza Type A (PCR) (Negative) Negative Influenza Type B (PCR) (Negative) Negative RSV (PCR) (Negative) Negative Range/Units 08/26/23 19:00 WBC (4.4-10.8) 10^3/uL RBC (3.93-5.22) 10^6/uL Hgb (11.2-15.7) g/dL Hct (36.0-46.0) % MCV (80-95) fL MCH (27.0-33.0) pg MCHC (32.0-36.0) % RDW (11.7-14.6) % Plt Count (130-400) 10^3/uL MPV (8.0-11.0) fL Immature Gran % Neutrophils % Lymphocytes % Monocytes % Eosinophils % Basophils % Nucleated RBC % (0.0-0.3) % Absolute Neutrophils (1.2-6.7) 10^3/uL Absolute Lymphocytes (1.2-3.4) 10^3/uL Absolute Monocytes (0.1-0.8) 10^3/uL Absolute Eosinophils (0.0-0.7) 10^3/uL Absolute Basophils (0.0-0.2) 10^3/uL Sodium (136-145) mmol/L Potassium (3.5-5.1) mmol/L Chloride (98-107) mmol/L Carbon Dioxide (21.0-32.0) mmol/L Anion Gap (3-11) mmol/L BUN (7-18) mg/dL Creatinine (0.55-1.02) mg/dL Est GFR (CKD-EPI 2020) (mL/min/1.73m2) Glucose (74-106) mg/dL Calcium (8.5-10.1) mg/dL Magnesium (1.8-2.4) mg/dL Total Bilirubin (0.2-1.0) mg/dL AST (15-37) U/L ALT (14-59) U/L Alkaline Phosphatase (46-116) U/L Troponin I (<or=60) ng/L Cancelled Total Protein (6.4-8.2) g/dL Albumin (3.4-5.0) g/dL Urine Color (Yellow) Urine Clarity (Clear) Urine pH (5-8) Ur Specific [place] (1.005-1.025) Urine Protein (Negative) mg/dL Urine Ketones (Negative) mg/dL Urine Blood (Negative) Urine Nitrite (Negative) Urine Bilirubin (Negative) Urine Urobilinogen (Up to 0.2) mg/dL Ur Leukocyte Esterase (Negative) Urine Glucose (Negative) mg/dL COVID-19 Source SARS-CoV-2 (PCR) (Negative) Influenza Type A (PCR) (Negative) Influenza Type B (PCR) (Negative) RSV (PCR) (Negative) HPI General Mode of arrival: ambulatory. Date/Time Provider Initiated Documentation: 08/26/23 15:43. Limitations to Documentation: no limitations. Information obtained by: patient, RN notes reviewed and old records reviewed. HPI Narrative: 73 year old female presents to the ER with chief complaint of chest pain, palpitations which began today. patient reports she did not sleep well last night due to hallucinations. She has recently increased 1 dose of her carbidopa-levodopa before bed. She was seen here 2 days ago for fever and chills. She did have 1 positive blood culture which previous provider thought it may have been a contaminant. She denies any fever. She does have a history of Parkinson's, she does have an indwelling pacemaker her daughter does have COVID, she had a history of a cardiac stent placed, atrial fibrillation, type 2 diabetes, hypertension and bilateral hip replacements. She does take Eliquis. Related Data Home Medications Medication Instructions Recorded Confirmed apixaban 5 mg tablet 5 mg PO BID 01/25/23 08/26/23 carbidopa 25 mg-levodopa 100 mg 2 tab PO QID 01/25/23 08/26/23 tablet (Sinemet) diclofenac sodium 1 % topical gel 2 g topical TID 01/25/23 08/26/23 glipizide 5 mg tablet 5 mg PO DAILY 01/25/23 08/26/23 levothyroxine 112 mcg capsule 112 mcg PO DAILY 01/25/23 08/26/23 losartan 50 mg tablet 50 mg PO DAILY 01/25/23 08/26/23 metformin 500 mg tablet 500 mg PO BID 01/25/23 08/26/23 metoprolol succinate 100 mg 100 mg PO DAILY 01/25/23 08/26/23 tablet,extended release 24 hr magnesium malate, chelate (OptiMag) 125 mg PO DAILY 08/26/23 08/26/23 multivitamin (Daily Multi-Vitamin 1 tab PO DAILY 08/26/23 08/26/23 tablet) Allergies Allergy/AdvReac Type Severity Reaction Status Date / Time clindamycin Allergy Unknown Skin Rash Verified 08/26/23 15:58 empagliflozin Allergy Unknown Verified 08/26/23 15:58 latex Allergy Unknown Verified 08/26/23 15:58 oxycodone Allergy Unknown Verified 08/26/23 15:58 Penicillins Allergy Unknown Verified 08/26/23 15:58 ramipril Allergy Unknown Verified 08/26/23 15:58 rosuvastatin Allergy Unknown muscle pain Verified 08/26/23 15:58 shellfish derived Allergy Unknown Verified 08/26/23 15:58 Sulfa (Sulfonamide Allergy Unknown Verified 08/26/23 15:58 Antibiotics) iodine topical Allergy Unknown Uncoded 08/26/23 15:58 General Stated Complaint: [employer] SILVIANO: 3 Review of Systems All systems reviewed & are unremarkable except as noted in HPI and below PFSH All Active Problems (Updated 08/26/23 @ 17:57 by Gayathri Jane NP) Chest pain (Acute) Parkinson's disease (Chronic) Weakness (Acute) Muscle cramp (Acute) Foot pain (Acute) Plantar fasciitis (Acute) Chronic a-fib (Acute) Parkinsons disease (Chronic) Hypothyroidism (Chronic) Pacemaker (Acute) Type 2 diabetes mellitus (Acute) Hypertension (Chronic) PETRA (generalized anxiety disorder) (Acute) Surgical History History of heart artery stent x 2 History of bilateral hip replacements R 2017, L 03/2022. Social History Smoking/Tobacco Use Status: Never Smoking risk assessment performed?: Yes Alcohol Intake: never Drug use: Never Substance use type: does not use Housing: house Do you feel safe at home: Yes Do you feel safe in your relationship?: Yes Additional Social history: UNABLE TO ASSESS PRIVATELY Exam Narrative Exam Narrative: Constitutional: Alert and oriented x3. Appears stated age. Normal body habitus. Head: Normocephalic, no trauma. Eyes: Pupils PERRL, Red reflex noted, EOM's intact. Eyelids symmetrical without lesions, discharge, or swelling. ENT: Bilateral TM's WNL, External ear normal to inspection, no mastoid TTP, swelling, or erythema, Nasal turbinates WNL, no nasal discharge. Normal dentition, Posterior pharynx WNL, no exudate. Chest: RRR, Normal S1, S2, distal pulses intact. Resp: Lungs clear to auscultation bilaterally, no wheezes, rales, or rhonchi. Abdomen: Soft, non-distended, Normoactive bowel sounds all 4 quads. Musculoskeletal: Normal gait, 5/5 strength to all four extremities. Skin: No suspicious rashes or lesions. Capillary refill less than 2 sec. Neurologic: Cranial nerves II-XII intact. Alert and oriented x 3. Motor: No deficits noted. Sensory: Intact bilaterally all 4 extremities. Reflexes: DTR's intact bilaterally.. Tremors noted to upper and lower extremities at rest. Hematologic/Lymphatic: No ecchymosis, no lymphadenopathy. Course Vital Signs Vital signs: Vital Signs Temperature 36.5 C 08/26/23 15:47 Pulse 95 H 08/26/23 15:47 Respiratory Rate 20 08/26/23 15:47 Blood Pressure 161/107 H 08/26/23 15:47 Pulse Oximetry 97 08/26/23 15:47 Temperature 36.5 C 08/26/23 15:47 Temperature Source Skin 08/26/23 15:47 Pulse 95 H 08/26/23 15:47 Respiratory Rate 20 08/26/23 15:47 Blood Pressure 161/107 H 08/26/23 15:47 Blood Pressure Position Supine 08/26/23 15:47 Pulse Oximetry 97 08/26/23 15:47 Oxygen Delivery Method Room Air 08/26/23 15:47 Oxygen Flow Rate 0 08/26/23 15:47 Pain Level 3 08/26/23 15:47
--- NOTE | 2023-08-26 16:15 | DI.RAD_ITS ---
Exam(s) XR PORTABLE CHEST AP EXAM: XR PORTABLE CHEST AP CLINICAL HISTORY: Chest Pain TECHNIQUE: 2D digital imaging was performed of the chest. One image was obtained. An AP view was ob tained. COMPARISON: Comparison is made with prior examinations. FINDINGS: MEDIASTINUM: Normal. HEART: Cardiomegaly. Pacemaker is in place. PULMONARY VASCULATURE: Normal. LUNGS: Clear. PLEURAL SPACE: No pleural effusion or pneumothorax. BONE:Within normal limits for the patient's age. OTHER FINDINGS:Normal. IMPRESSION: No acute pulmonary findings. DATA REPOSITORY: RADIATION DOSE DELIVERED:
[2023-08-26 16:45] LABS: Abs Immature Grans 0.02 10^3/uL (0.0-0.06); Absolute Basophil Count 0.09 10^3/uL (0.0-0.2); Absolute Eosinophil Count 0.42 10^3/uL (0.0-0.7); Absolute Lymphocyte Count 1.46 10^3/uL (1.2-3.4); Absolute Monocyte Count 0.82 10^3/uL (0.1-0.8); Absolute Neutrophil Count 6.17 10^3/uL (1.2-6.7); Eosinophils % 4.7; HGB 12.6 g/dL (11.2-15.7); Immature Grans % 0.2; Lymphocytes % 16.3; MCH 28.7 pg (27.0-33.0); MCHC 31.5 % (32.0-36.0); MCV 91 fL (80-95); MPV 9.1 fL (8.0-11.0); Monocytes % 9.1; Neutrophils % 68.7; Platelet Count 236 10^3/uL (130-400); RBC 4.39 10^6/uL (3.93-5.22); RDW 13.3 % (11.7-14.6); RDW-SD 44.6 fL; WBC 8.98 10^3/uL (4.4-10.8)
[2023-08-26 16:48] LABS: Bilirubin Negative (Negative); Blood Negative (Negative); Clarity Clear (Clear); Glucose Negative (Negative); Ketones Trace mg/dL (Negative); Leukocyte Esterase Negative (Negative); Nitrite Negative (Negative); Urobilinogen 0.2 mg/dL (Up to 0.2)
[2023-08-26 16:58] LABS: COVID-19 PCR Negative (Negative); Influenza A PCR Negative (Negative); Influenza B PCR Negative (Negative); RSV PCR Negative (Negative)
[2023-08-26 17:01] LABS: Source Nasopharynx
[2023-08-26 17:04] LABS: ALT 7 U/L (14-59); AST 10 U/L (15-37); Albumin 3.6 g/dL (3.4-5.0); Alkaline Phosphatase 63 U/L (46-116); Anion Gap 6.9 mmol/L (3-11); BUN 18 mg/dL (7-18); Bilirubin, Total 0.6 mg/dL (0.2-1.0); CO2 26.1 mmol/L (21.0-32.0); CREATININE 0.8 mg/dL (0.55-1.02); Chloride 107 mmol/L (98-107); Estimated GFR 76.79 (mL/min/1.73m2); Glucose 123 mg/dL (74-106); Magnesium 1.9 mg/dL (1.8-2.4); Potassium 4.3 mmol/L (3.5-5.1); Sodium 140 mmol/L (136-145); Total Protein 6.9 g/dL (6.4-8.2); Troponin I < 50 ng/L (<or=60)
--- NOTE | 2023-08-26 17:24 | DI.VRAD_ITS ---
PROCEDURE INFORMATION: Exam: XR Chest Exam date and time: 08/26/2023 4:40 PM Age: 73 years old Clinical indication: Other: Chest pain TECHNIQUE: Imaging protocol: Radiologic exam of the chest. Views: 1 view. COMPARISON: CR XR CHEST 1V IN DI DEPT 08/24/2023 3:10 PM FINDINGS: Tubes, catheters and devices: Pacemaker. Lungs: Unremarkable. No consolidation. Pleural spaces: Unremarkable. No pleural effusion. No pneumothorax. Heart/Mediastinum: Cardiomegaly. Vasculature: Aortic calcifications. Bones/joints: Degenerative arthritis in the shoulders. IMPRESSION: No acute findings Dictated and Authenticated by: Bernice Toribio MD. Ordering:FIFI Trinh MD
[2023-08-26 18:01] VITALS: TEMP 36.5
[2023-08-26 18:11] VITALS: PULSE 74; O2SAT 96
== END 2023-08-26 18:14 | disposition home or self-care (01) ==
PROVIDERS: Emergency Provider Registered Nurse Emergency; PCP Internal Medicine
DX: R07.9 Chest pain, unspecified (principal); R00.2 Palpitations; I10 Essential (primary) hypertension; Z95.0 Presence of cardiac pacemaker; R53.1 Weakness; G20.A1 Parkinson's disease without dyskinesia, without mention of fluctuations; E11.9 Type 2 diabetes mellitus without complications
CPT/HCPCS: 80053; 87637; 93005; 99283; 71045; 81003; 83735; 84484; 85025; 93010